=== PATIENT | female | born 2005 | race Caucasian/White ===

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

== ENCOUNTER 2023-01-05 09:28 | Emergency (ER) | payer MEDICAID ==
[2023-01-05] MEDS ORDERED: Ondansetron 4 MG/2 ML SDV IVPUSH ONE (10:14)
[2023-01-05] MEDS ORDERED: HYDROmorphone 0.5 MG/0.5 ML Syringe IVPUSH ONE ×2 (10:14→12:31)
[2023-01-05] MEDS ORDERED: Sodium Chloride 0.9% 1,000 ML IV SCH (10:15)
[2023-01-05 10:21] LABS: HEMATOCRIT 44.5 % (34.3-46.0); HEMOGLOBIN 15.8 g/dL (11.2-15.5); MEAN CORPUSCULAR HEMOGLOBIN 33.1 pg (31.6-35.5); MEAN CORPUSCULAR HGB CONC 35.5 g/dL (31.6-35.5); MEAN CORPUSCULAR VOLUME 93.3 fL (81.4-99.0); RED BLOOD CELL COUNT 4.77 M/uL (3.77-5.24); WHITE BLOOD CELL COUNT,WBC 13.5 K/uL (3.2-11.0)
[2023-01-05 10:33] LABS: A/G RATIO 1.4 (1.2-2.2); ALANINE AMINOTRANSFERASE,ALT 19 U/L (12-78); ALBUMIN 4.6 g/dL (3.4-5.0); ALKALINE PHOSPHATASE 103 U/L (46-116); ANION GAP 9.4 mmol/L (5.0-14.0); ASPARTATE AMNIOTRANSFERASE,AST 20 U/L (15-37); BILIRUBIN TOTAL 2.6 mg/dL (0.2-1.0); BLOOD UREA NITROGEN,BUN 5 mg/dL (7-18); CALCIUM 9.4 mg/dL (8.5-10.1); CARBON DIOXIDE,CO2 28 mmol/L (21-32); CHLORIDE,CL 105 mmol/L (100-108); CREATINE KINASE,CK 76 U/L (26-192); CREATININE 0.8 mg/dL (0.6-1.0); EST CRCL DRUG DOSING (CG) 97.67 mL/min; ESTIMATED GFR 109 mL/min (>60); GLUCOSE RANDOM 102 mg/dL (74-106); POTASSIUM,K 3.8 mmol/L (3.6-5.2); PROTEIN TOTAL,TP 7.9 g/dL (6.4-8.2); SODIUM,NA 142 mmol/L (140-148)
[2023-01-05] MEDS ORDERED: Iopamidol 612 MG/ML 500 ML Multipack Bottle IV ONE (10:36)
[2023-01-05] MEDS ORDERED: Sodium Chloride 0.9% 50 ML IV SCH (10:45)
[2023-01-05] MEDS: Sodium Chloride 0.9% 10 ML Syringe FLUSH ONE ×2 (11:02→11:28)
[2023-01-05 11:05] LABS: APPEARANCE,URINE CLEAR (CLEAR); BILIRUBIN,URINE NEGATIVE (NEGATIVE); COLOR,URINE YELLOW (YELLOW); GLUCOSE,URINE NEGATIVE (NEGATIVE); KETONES,URINE NEGATIVE (NEGATIVE); LEUKOCYTE ESTERASE,URINE NEGATIVE (NEGATIVE); NITRITE,URINE NEGATIVE (NEGATIVE); OCCULT BLOOD,URINE NEGATIVE (NEGATIVE); PH,URINE 7.5 (5.0-8.0); PROTEIN,URINE NEGATIVE (NEGATIVE)
[2023-01-05 11:06] LABS: AMPHETAMINES SCREEN, URINE NEGATIVE (NEGATIVE); BARBITURATE SCREEN,URINE NEGATIVE (NEGATIVE); BENZODIAZEPINES SCREEN,URINE NEGATIVE (NEGATIVE); METHADONE SCREEN, URINE NEGATIVE (NEGATIVE); METHAMPHETAMINES SCREEN, URINE NEGATIVE (NEGATIVE); OXYCODONE SCREEN,URINE NEGATIVE (NEGATIVE); PROPOXYPHENE SCREEN,URINE NEGATIVE (NEGATIVE); THC SCREEN,URINE 50 NG/ML NEGATIVE (NEGATIVE)
[2023-01-05 11:15] LABS: AMORPHOUS SEDIMENT,URINE NOT SEEN; BACTERIA,URINE MODERATE; EPITHELIAL CELLS,URINE FEW; MUCUS,URINE NOT SEEN; RBC,URINE 0-5 (0-5); WBC,URINE 0-5 (0-5)
[2023-01-05 12:33] VITALS: BP 119/63; PULSE 66
[2023-01-05] MEDS ORDERED: Ondansetron 4 MG Tab.DIS PO ONE (14:52)
== END 2023-01-05 15:00 | disposition home or self-care (01) ==
LOC: JP.ED 09:28
DX: M54.50 Low back pain, unspecified (principal); N39.0 Urinary tract infection, site not specified; W19.XXXA Unspecified fall, initial encounter; Z79.899 Other long term (current) drug therapy
CPT/HCPCS: 36415; 72131; 74177; 76377; 80053; 80305; 80307; 81001; 82550; 83605; 84703; 85027; 87086; 96374; 96375; 96376; 99284; J1170; J2405; J3490; J7030; Q0162; Q9967

== ENCOUNTER 2024-02-22 08:37 | Emergency (ER) | payer BC, MEDICAID ==
[2024-02-22 08:54] VITALS: BP 132/72; PULSE 86
== END 2024-02-22 10:30 | disposition left against medical advice (07) ==
LOC: JP.ED 08:37
DX: Z53.21 Procedure and treatment not carried out due to patient leaving prior to being seen by health care provider (principal)

== ENCOUNTER 2024-03-04 17:08 | Emergency (ER) | payer BC, MEDICAID ==
[2024-03-04] MEDS ORDERED: Sodium Chloride 0.9% 10 ML Syringe FLUSH PRN (17:19)
[2024-03-04] MEDS: Sodium Chloride 0.9% 1,000 ML IV SCH ×2 (17:23→17:37)
[2024-03-04 17:25] LABS: BASOPHILS ABSOLUTE AUTO 0.12 K/uL (0.00-0.10); BASOPHILS PERCENT AUTO 0.7 % (0.1-1.3); EOSINOPHILS ABSOLUTE AUTO 0.05 K/uL (0.00-0.40); EOSINOPHILS PERCENT AUTO 0.3 % (0.0-5.4); HEMATOCRIT 43.2 % (34.3-46.0); HEMOGLOBIN 15.2 g/dL (11.2-15.5); IMMATURE GRAN ABSOLUTE AUTO 0.09 K/uL (0.00-0.23); IMMATURE GRAN PERCENT AUTO 0.5 % (0.0-0.7); LYMPHOCYTES ABSOLUTE AUTO 8.55 K/uL (0.8-3.3); LYMPHOCYTES PERCENT AUTO 47.1 % (11.4-47.7); MEAN CORPUSCULAR HEMOGLOBIN 33.6 pg (31.6-35.5); MEAN CORPUSCULAR HGB CONC 35.2 g/dL (31.6-35.5); MEAN CORPUSCULAR VOLUME 95.4 fL (81.4-99.0); MONOCYTES ABSOLUTE AUTO 1.19 K/uL (0.20-0.90); MONOCYTES PERCENT AUTO 6.6 % (3.3-12.6); NEUTROPHILS ABSOLUTE AUTO 8.16 K/uL (1.0-7.6); NEUTROPHILS PERCENT AUTO 44.8 % (40.0-78.1); PLATELET COUNT,PLT 369 K/uL (130-375); RED BLOOD CELL COUNT 4.53 M/uL (3.77-5.24); WHITE BLOOD CELL COUNT,WBC 18.2 K/uL (3.2-11.0)
[2024-03-04] MEDS: HYDROmorphone 1 MG/ML Syringe IVPUSH ONE (17:29)
[2024-03-04] MEDS: Diphtheria,Pertussis(Acell),Tetanus Vaccine 0.5 ML Syringe IM ONE (17:31)
[2024-03-04] MEDS: Ketamine 500 MG/5 ML MDV IV ONE (17:31)
[2024-03-04] MEDS: ceFAZolin 2 GM in Premix Bag 1 BAG IV ONE (17:37)
[2024-03-04] MEDS: ceFAZolin 1 GM in Premix Bag 1 BAG IV ONE ×2 (17:48→17:52)
[2024-03-04 19:29] VITALS: BP 131/77; PULSE 101
== END 2024-03-04 18:12 ==
LOC: JP.ED 17:08
DX: S61.432A Puncture wound without foreign body of left hand, initial encounter (principal); J45.909 Unspecified asthma, uncomplicated; Z23 Encounter for immunization; Z79.899 Other long term (current) drug therapy; W34.00XA Accidental discharge from unspecified firearms or gun, initial encounter
CPT/HCPCS: 36415; 73120; 85025; 90471; 90715; 96365; 96366; 96375; 99284; 99285; J0690; J1170; J7030